=== PATIENT | female | born 1930 | race Caucasian/White ===

== ENCOUNTER 2017-09-14 13:05 | Emergency (ER) | payer MEDICARE ==
[2017-09-14 13:45] LABS: #Eosinphils 0.2 thou/uL (0.0-0.7); #Lymphocytes 1.6 thou/uL (1.20-3.40); #Monocytes 1.1 thou/uL (0.11-0.59); #Neutrophils 7.4 thou/uL (1.40-6.50); %Lymphocytes 15.2 % (21.0-51.0); %Monocytes 10.4 % (0.0-10.0); Hematocrit 42.3 % (36.0-47.0); Mean Platelet Volume 7.4 fL (7.4-10.4); Red Blood Cell (RBC) Count 4.45 mill/uL (4.20-5.40); White Blood Cell (WBC) Count 10.2 thou/uL (4.8-10.8)
[2017-09-14 14:16] LABS: ALT (SGPT) 22 U/L (8-55); AST (SGOT) 19 U/L (5-34); Alkaline Phosphatase 77 U/L (40-150); Anion Gap 13 mmol/L (10-20); BUN (Urea Nitrogen) 17 mg/dL (9.8-20.1); Bilirubin, Total 0.4 mg/dL (0.2-1.2); CK (CPK) 63 U/L (29-168); Calc. Creatinine Clearance 0 mL/min (70-130); Calcium 9.4 mg/dL (7.8-10.44); Carbon Dioxide 23 mmol/L (23-31); Chloride 99 mmol/L (98-107); Estimated GFR-MDRD 78; Globulin 3.2 g/dL (2.4-3.5); Lipase 77 U/L (8-78); Protein, Total 7.1 g/dL (6.0-8.3); Troponin I Less than 0.010 ng/mL (< 0.028)
--- NOTE | 2017-09-14 14:17 | RAD ---
LEFT SHOULDER 3 VIEWS: Date: 09/14/17 HISTORY: Left shoulder pain. FINDINGS: Left shoulder prosthesis is noted. Components appear adequately positioned. The proximal humerus appe ar osteopenic. No definite evidence of loosening of the humeral component. No evidence of acute fract ure. IMPRESSION: Left shoulder prosthesis. No evidence of acute abnormality. POS: [facility]
--- NOTE | 2017-09-14 14:19 | RAD ---
PORTABLE AP CHEST: Date: 09/14/17 HISTORY: Left arm and shoulder pain radiating to the neck and back. Progressively worse over the last three da ys. COMPARISON: 05/31/15. FINDINGS: There are bilateral glenohumeral prostheses again noted. There is stable osteolysis adjacent to the p roximal aspect of the left humeral prosthesis with what appear to be subchondral cystic changes invol ving the distal humerus. The cardiac silhouette and pulmonary vasculature are within normal limits. L ungs are clear. Vascular calcifications are seen in the thoracic aorta. There has been no significant interval change compared to the study on 10/08/14. Degenerative changes are again present in the spi ne. IMPRESSION: No acute cardiopulmonary process. POS: [facility]
== END 2017-09-14 16:33 | disposition home or self-care (01) ==
LOC: ERS 13:05
DX: M19.012 Primary osteoarthritis, left shoulder (principal); E11.9 Type 2 diabetes mellitus without complications; I10 Essential (primary) hypertension
CPT/HCPCS: 36415; 71010; 80053; 82553; 83690; 84484; 85025; 93005; 94760

== ENCOUNTER 2018-04-30 22:19 | Emergency (ER) | payer MEDICARE ==
[2018-05-01] MEDS ORDERED: Bacitracin Zinc 1 Packet ONE (01:28)
--- NOTE | 2018-05-01 11:12 | CT ---
PRELIMINARY REPORT/[facility]/EMERGENTY AFTER-HOURS PROCEDURE CT Maxillofacial Without Intravenous Contrast CLINICAL HISTORY: 88 years old, female; Injury or trauma; Fall; Initial encounter; Abrasion; Ocular (eye or eyeball); R ight; Patient HX: Er 2; Mechanical fall today. Neg. Loc. Right eye bruising/swelling to right side of face TECHNIQUE: Axial computed tomography images of the face without intravenous contrast. Coronal and sagittal reformatted images were created and reviewed. COMPARISON: No relevant prior studies available. FINDINGS: Bones/joints: No acute fracture. Soft tissues: A large left facial and periorbital hematoma. Orbits: The orbital contents are normal. Sinuses: Unremarkable. No air-fluid levels. IMPRESSION: Superficial injury without orbital injury or acute fracture. Thank you for allowing us to participate in the care of your patient. Dictated and Authenticated by: Leslie Delvalle MD 05/01/2018 12:27 AM Central Time ([place] & [place]) EMERGENT AFTER HOURS CT FACIAL BONES: FINAL REPORT IMPRESSION: I agree with the preliminary interpretation given by [facility] that there is evidence for left supraorbital hematoma without evidence for orbital fracture. There is age indeterminate nondisplaced right nasal bone fracture. There is symmetric deformity of the globes. No evidence for an acute globe injury. POS: [facility]
--- NOTE | 2018-05-01 12:06 | CT ---
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 Neg. Loc. Right eye bruising/swelling to right side of face TECHNIQUE: Axial computed tomography images of the cervical spine without intravenous contrast. Coronal and sagittal reformatted images were created and reviewed. COMPARISON: No relevant prior studies available. FINDINGS: Vertebrae: Unremarkable. No acute fracture. Discs/spinal canal/neural foramina: There is moderate multilevel central spinal stenosis, secondary t o disc buldge/osteophytic spurring.Multilevel advanced facet arthropathy. Soft tissues: Unremarkable. Lung apices: Moderate emphysema. IMPRESSION: No acute findings. Thank you for allowing us to participate in the care of your patient. Dictated and Authenticated by: Leslie Delvalle MD 05/01/2018 12:26 AM Central Time ([place] & [place]) CERVICAL SPINE CT SCAN WITHOUT IV CONTRAST: Emergency after hour exam 0000 hours, 18. FINDINGS: Multilevel disc osteophytosis. Emphysema changes in the apices. No evidence for acute fracture or fac et dislocation. Code QA. I agree with [facility]. POS: [facility]
--- NOTE | 2018-05-01 12:09 | CT ---
PRELIMINARY REPORT/[facility]/EMERGENTY AFTER-HOURS PROCEDURE CT Head Without Intravenous Contrast CLINICAL HISTORY: 88 years old, female; Injury or trauma; Fall; Initial encounter; Abrasion; Face; Patient HX: Er 2; Me chanical fall today. Neg. Loc. Right eye bruising/swelling to right side of face TECHNIQUE: Axial computed tomography images of the head/brain without intravenous contrast. COMPARISON: No relevant prior studies available. FINDINGS: Brain: Generalized atrophy and chronic white matter ischemic changes. There is no mass or acute infar ct. Small hypodensity consistent with VR spaces or old lacunar infarcts seen in the bilateral basal g anglia. No hemorrhage. Ventricles: Unremarkable. No ventriculomegaly. Bones/joints: Unremarkable. No acute fracture. Soft tissues: See below. Sinuses: Unremarkable as visualized. No acute sinusitis. Mastoid air cells: Unremarkable as visualized. No mastoid effusion. Orbits: Left periorbital and facial hematoma. IMPRESSION: Superficial scalp injury without intra-cranial hemorrhage or acute fracture. Thank you for allowing us to participate in the care of your patient. Dictated and Authenticated by: Leslie Delvalle MD 05/01/2018 12:28 AM Central Time ([place] & [place]) FINAL REPORT EMERGENCY AFTER HOURS BRAIN CT WITHOUT IV CONTRAST: Date: 04/30/18 Time: 0005 hours IMPRESSION: Prominent left frontal scalp swelling and injury. No mass or bleed, or other acute process. Report in agreement with preliminary report given on-call by Angel. POS: [facility]
== END 2018-05-01 01:36 | disposition home or self-care (01) ==
LOC: ERS 22:19
DX: S00.12XA Contusion of left eyelid and periocular area, initial encounter (principal); S00.83XA Contusion of other part of head, initial encounter; S60.211A Contusion of right wrist, initial encounter; E11.9 Type 2 diabetes mellitus without complications; Z79.899 Other long term (current) drug therapy; W18.30XA Fall on same level, unspecified, initial encounter
CPT/HCPCS: 70450; 70486; 72125

== ENCOUNTER 2018-05-06 10:22 | Emergency (ER) | payer MEDICARE ==
[2018-05-06 10:54] LABS: #Eosinphils 0.1 thou/uL (0.0-0.7); #Lymphocytes 1.4 thou/uL (1.20-3.40); #Monocytes 1.2 thou/uL (0.11-0.59); #Neutrophils 8.1 thou/uL (1.40-6.50); %Basophils 0.1 % (0.0-1.0); %Monocytes 11.2 % (0.0-10.0); %Neutrophils 74.7 % (42.0-75.0); Hemoglobin 14.3 g/dL (12.0-16.0); Mean Corpuscular HGB CONC 34.9 g/dL (32.0-36.0); Mean Corpuscular Hemoglobin 32.2 pg (27.0-31.0); Mean Corpuscular Volume 92.4 fL (78.0-98.0); Mean Platelet Volume 7.2 fL (7.4-10.4); Platelet Count 224 thou/uL (130-400); RBC Distribution Width 12.2 % (11.5-14.5); Red Blood Cell (RBC) Count 4.45 mill/uL (4.20-5.40); White Blood Cell (WBC) Count 10.8 thou/uL (4.8-10.8)
--- NOTE | 2018-05-06 11:23 | ULT ---
DOPPLER VENOUS ULTRASOUND OF THE LEFT LOWER EXTREMITY: Date: 05/06/18 INDICATION: Left lower extremity pain and edema with redness and bruising after a fall 6 days ago. TECHNIQUE: Rice scale, color Doppler, and vascular duplex with spectral analysis was performed of the deep venou s structures of the left lower extremity. The common femoral vein, superficial femoral vein, proximal greater saphenous vein, proximal greater profunda vein, popliteal, and posterior tibial veins were a ssessed. FINDINGS: Normal compression, flow, and augmentation was seen within the deep venous structures on the left low er extremity. IMPRESSION: No evidence of deep venous thrombosis within the left lower extremity. POS: [facility]
== END 2018-05-06 11:41 | disposition home or self-care (01) ==
LOC: ERS 10:22
DX: L03.116 Cellulitis of left lower limb (principal); E11.9 Type 2 diabetes mellitus without complications; I10 Essential (primary) hypertension; Z79.899 Other long term (current) drug therapy; Z79.82 Long term (current) use of aspirin
CPT/HCPCS: 36415; 85025

== ENCOUNTER 2018-11-18 12:28 | Outpatient (CLI) | payer MEDICARE ==
--- NOTE | 2018-11-18 14:30 | MRI ---
MRI OF LUMBAR SPINE PERFORMED WITHOUT CONTRAST ENHANCEMENT: HISTORY: Back pain radiating to both legs up until approximately 2 weeks ago. Received steroid injections. P ain in the back has subsided and right leg but still has left buttock and left leg pain after sitting . FINDINGS: There are chronic-appearing compression changes and what appear to be vertebroplasty changes of the T 12 vertebral body. The lumbar vertebral bodies show some superior end plate compression changes and acute edema changes involving the L5 vertebral body. There is no significant bony retropulsion. The re is a spondylolisthesis of L4 on L5 of approximately 6 mm. There is no significant periaortic wilfred opathy and the visualized portions of the kidneys are unremarkable. T11-12: No significant canal narrowing. T12-L1: Degenerative facet changes without canal or foraminal stenosis. L1-2: Degenerative facet and ligamentous hypertrophic changes with some borderline canal narrowing. L2-3: Disk bulge with facet and ligamentous hypertrophic change associated with a very mild degree o f canal stenosis. No foraminal narrowing. L3-4: There does appear to be a very minimal spondylolisthesis at this level. Prominent degenerativ e facet changes and a mild degree of canal stenosis are present. No significant foraminal narrowing. L4-5: There is a severe canal stenosis at this level. There are prominent degenerative facet change s. Stenosis is also associated by the spondylolisthesis and there is mild bilateral foraminal narrow ing. L5-S1: Unremarkable. IMPRESSION: 1. Acute compression changes of the superior end plate of L5. There is minimal loss of vertebral bella dy height associated with this. 2. Spondylolisthesis with degenerative facet and ligamentous hypertrophic changes at the L4-5 level associated with a severe degree of canal stenosis. Other findings as noted above. POS: [facility]
== END 2018-11-18 12:29 | disposition home or self-care (01) ==
LOC: BICMRI 12:28
PROVIDERS: ATTEND Specialist
DX: M43.16 Spondylolisthesis, lumbar region (principal); M47.815 Spondylosis without myelopathy or radiculopathy, thoracolumbar region; M47.816 Spondylosis without myelopathy or radiculopathy, lumbar region; M48.061 Spinal stenosis, lumbar region without neurogenic claudication
CPT/HCPCS: 72148

== ENCOUNTER 2019-02-02 13:57 | Outpatient (CLI) | payer MEDICARE ==
--- NOTE | 2019-02-02 16:15 | RAD ---
4 VIEWS LUMBAR SPINE: Date: 02/02/19 HISTORY: Back pain FINDINGS: AP, lateral, flexion, and extension weightbearing views of lumbar spine obtained. Images demonstrate stable anterolisthesis of L4 on L5. This does not change on flexion or extension v iews and measures approximately 8.8 mm. Vertebroplasty change is seen at the T12 and L5 levels. Osteopenia noted. No evidence of acute fractures seen. IMPRESSION: Stable anterolisthesis of L4 on L5. POS: [facility]
--- NOTE | 2019-02-02 17:11 | MRI ---
NONCONTRAST MRI LUMBAR SPINE: Date: 02-02-19 History: Spondylolisthesis lumbar region. Patient complains of low back pain since September that radi ates into bilateral hips. Comparison: 11-18-18 FINDINGS: There are vertebroplasty changes again seen involving the compression fracture of the T12 vertebral b gricel with interval vertebroplasty changes involving the wed-shaped compression fracture of the L5 vert ebral body. No new fracture is seen and no edema is appreciated within the vertebral bodies on the fl uid sensitive sequence. There is mild right convex curvature of the lumbar spine. Conus medullaris is normal in appearance and again terminates at the level of the L1 vertebral body. T11-12: Mild disc osteophyte complex felt to be narrowing the central spinal canal and neural foramin a. T12-L1: There is a mild disc osteophyte complex and facet hypertrophic changes. There is mild mass ef fect on the posterolateral aspect of the thecal sac due to facet hypertrophic changes. No significant neural foraminal narrowing is present. L1-2: Again noted is slight retrolisthesis of L1 on L2. There is broad based disc osteophyte complex. Mild narrowing of the central spinal canal is present. Facet degenerative changes and ligamentous th ickening. Neural foramina appear patent. L2-3: There is a mild disc osteophyte complex and facet hypertrophic changes. There is only mild narr owing of the central spinal canal seen on the prior study. The neural foramina at this level are shea nt. L3-4: There is trace anterolisthesis of L3 on L4. Mild broad based disc osteophyte complex is present . There are facet hypertrophic changes and ligamentous thickening present. Mild degree of central can al narrowing is again seen. The neural foramina are patent. L4-5: There is loss of intervertebral disc height. Again noted is grade I anterolisthesis of L4 on L5 , again measuring approximately 6 mm with disc osteophyte complex and severe facet hypertrophic theodore es and ligamentous thickening. These findings result in severe narrowing of the central spinal canal as well as narrowing of the lateral recesses. There is bilateral neural foraminal narrowing, greater on the right. L5-S1: There is trace anterolisthesis of L5 on S1. Minimal disc osteophyte complex is present. The ce ntral spinal canal and neural foramina are patent. There are facet hypertrophic changes at this level . The paravertebral soft tissues have a normal appearance. There is atrophy of the paraspinus musculatu re, unchanged from prior exam. IMPRESSION: 1. Stable vertebroplasty changes involving the compression fracture of the T12 vertebral body with in terval vertebroplasty changes involving the L5 vertebral body. The degree of height loss at these lev els is unchanged. 2. Multilevel degenerative changes in the lumbar spine as described above. There is trace retrolisthe sis of L1 on L2 with trace anterolisthesis of L5 on S1 and a greater degree of grade I anterolisthesi s of L4 on L5. These findings were also present on a prior exam. 3. Severe narrowing of the central spinal canal at the L4-5 level due to the degenerative changes and anterolisthesis. There is also narrowing of the lateral recesses. Findings are similar to prior stud y. POS: [facility]
== END 2019-02-02 13:58 | disposition home or self-care (01) ==
LOC: BICMRI 13:57
PROVIDERS: ATTEND Specialist
DX: M43.16 Spondylolisthesis, lumbar region (principal); M47.816 Spondylosis without myelopathy or radiculopathy, lumbar region; M43.17 Spondylolisthesis, lumbosacral region; S22.089D Unspecified fracture of T11-T12 vertebra, subsequent encounter for fracture with routine healing; M48.061 Spinal stenosis, lumbar region without neurogenic claudication
CPT/HCPCS: 72110; 72148

== ENCOUNTER 2019-02-12 07:18 | Emergency (ER) | payer MEDICARE ==
--- NOTE | 2019-02-12 07:45 | RAD ---
LEFT ELBOW 2 VIEWS: Date: 02/12/19 HISTORY: Injury. FINDINGS: Prominent hypertrophic degenerative change seen at the elbow. 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 There is associated joint effusion. I do not definitely confirm a fracture; however, the exam is limited on this 2 view study. IMPRESSION: Prominent hypertrophic changes at the elbow. No definite fracture identified. POS: [facility]
--- NOTE | 2019-02-12 07:46 | RAD ---
LEFT SHOULDER 2 VIEWS: Date: 02/12/19 HISTORY: Injury. FINDINGS: There is a shoulder prosthesis. Components appear adequately positioned. No evidence of loosening. No acute fracture identified. IMPRESSION: No acute findings. POS: [facility]
[2019-02-12] MEDS ORDERED: Acetaminophen 500 MG TAB ONE (08:09)
[2019-02-12] MEDS ORDERED: Ondansetron ODT 8 MG TAB ONE (08:09)
--- NOTE | 2019-02-12 09:26 | RAD ---
PORTABLE CHEST: Date: 02/12/19 HISTORY: Chest trauma. COMPARISON: 09/14/17. FINDINGS: Heart size within normal limits. There are atherosclerotic changes of the aorta. Lungs are clear of i nfiltrates. Postoperative changes of both shoulders are seen. These changes appear stable. No acute p rocess seen. IMPRESSION: No acute changes. POS: [facility]
== END 2019-02-12 09:07 | disposition home or self-care (01) ==
LOC: ERS 07:18
DX: S20.212A Contusion of left front wall of thorax, initial encounter (principal); S50.02XA Contusion of left elbow, initial encounter; E11.9 Type 2 diabetes mellitus without complications; I10 Essential (primary) hypertension; W19.XXXA Unspecified fall, initial encounter
CPT/HCPCS: 71045

== ENCOUNTER 2019-02-28 13:15 | Outpatient (CLI) | payer MEDICARE ==
--- NOTE | 2019-02-28 14:11 | RAD ---
LUMBAR SPINE THREE VIEWS: History: Spondylolisthesis lumbar region. Comparison: 02-02-19 FINDINGS: Exam includes flexion and extension lateral views. Grade I, approximately 1 cm anterolisthesis of L4 on L5 without significant abnormal translation betw een flexion and extension. Little changed from the prior 02-02 study. Status post vertebroplasty theodore es at L5 and T12. Bony demineralization. IMPRESSION: Overall stable anterolisthesis at L4-5. No abnormal translation between flexion and extension. Bony d emineralization with multiple vertebroplasties. POS: [facility]
== END 2019-02-28 13:16 | disposition home or self-care (01) ==
LOC: RAD 13:15
PROVIDERS: ATTEND Nurse Practitioner Family
DX: M43.16 Spondylolisthesis, lumbar region (principal); M81.0 Age-related osteoporosis without current pathological fracture; Z98.890 Other specified postprocedural states
CPT/HCPCS: 72100

== ENCOUNTER 2019-05-07 13:33 | Emergency (ER) | payer MEDICARE | END 2019-05-07 15:55 | disposition home or self-care (01) | LOC: ERS 13:33 | DX: S51.812A Laceration without foreign body of left forearm, initial encounter (principal); S80.811A Abrasion, right lower leg, initial encounter; E11.9 Type 2 diabetes mellitus without complications; I10 Essential (primary) hypertension; Z79.899 Other long term (current) drug therapy; Z79.84 Long term (current) use of oral hypoglycemic drugs; W04.XXXA Fall while being carried or supported by other persons, initial encounter | CPT/HCPCS: 99283 ==

== ENCOUNTER 2019-11-17 11:33 | Emergency (ER) | payer MEDICARE ==
[2019-11-17] MEDS ORDERED: Adacel (T-DAP) 0.5 ML SYRINGE ONE ×2 (11:58→12:06)
--- NOTE | 2019-11-17 13:07 | CT ---
CT BRAIN NONCONTRAST: DATE: 11/17/2019 HISTORY: 89-year-old female status post acute head trauma due to fall. FINDINGS: There is no midline shift or any other mass effect. There is no evidence of acute intracranial hemor rhage, large cortical infarct, obstructive hydrocephalus, or extraaxial fluid collection. The calvar ium is intact. There is diffuse parenchymal volume loss. There are low attenuation areas in the whi te matter. These are nonspecific, but in a patient of this age, they are probably chronic ischemic w storm matter changes due to microvascular atherosclerosis. IMPRESSION: 1. No acute intracranial findings. 2. Involutional changes and chronic ischemic white matter changes. jn [] POS: [facility]
--- NOTE | 2019-11-17 13:09 | RAD ---
Frontal radiograph chest: 3 views left RIBS: 11/17/2019 COMPARISON: None HISTORY: Fall, trauma, pain FINDINGS: Frontal radiograph chest demonstrates no pneumothorax or pleural fluid. No lobar consolidat ion or alveolar edema. There is atherosclerotic ulceration aortic arch. Bilateral shoulder arthroplasties are present. Nondisplaced sixth rib fracture noted on the left on the oblique image (4 of 4). Questionable subtle fracture also seen involving the fifth rib and seventh rib on the left. IMPRESSION: Probable nondisplaced left-sided rib fractures as detailed above. Findings could be sindy r assessed via chest CT if clinically warranted.
--- NOTE | 2019-11-17 13:11 | CT ---
CT CERVICAL SPINE NONCONTRAST: DATE: 11/17/2019 HISTORY: 89-year-old female status post acute cervical trauma from fall. FINDINGS: There are no jumped or perched facets. There is no evidence of acute fracture. The vertebral body h eights are maintained. There is no prevertebral soft tissue swelling. There are degenerative disc c hanges and facet osteoarthrosis. IMPRESSION: 1. Cervical spondylosis. 2. No evidence of acute fracture or acute traumatic subluxation. jn [] POS: [facility]
== END 2019-11-17 14:05 | disposition home or self-care (01) ==
LOC: ERS 11:33
DX: S22.42XA Multiple fractures of ribs, left side, initial encounter for closed fracture (principal); S51.812A Laceration without foreign body of left forearm, initial encounter; E11.9 Type 2 diabetes mellitus without complications; M19.90 Unspecified osteoarthritis, unspecified site; Z23 Encounter for immunization; W19.XXXA Unspecified fall, initial encounter
CPT/HCPCS: 70450; 72125; 90471; 90715; 93005